=== PATIENT | male | born 1990 | race Caucasian/White ===

== ENCOUNTER 2019-12-06 23:33 | Inpatient (IN) | payer OTHER, SELFPAY ==
--- NOTE | ~2019-12-06 | US_ITS ---
EXAMINATION: US venous doppler [facility] DATE: 12/07/2019 09:38 INDICATION: Bilateral lower limb swelling TECHNIQUE: Grayscale ultrasound images without and with compression and Doppler ultrasound images of the bilateral lower extremity veins were obtained. COMPARISON: None. FINDINGS: The visualized portions of right common femoral vein, profunda (deep) femoral vein, femoral vein, pop liteal vein, posterior tibial veins, peroneal veins, gastrocnemius vein and the lesser saphenous vein and greater saphenous vein outflow are patent. The visualized portions of left common femoral vein, profunda femoral vein, femoral vein, popliteal v ein, posterior tibial veins, peroneal veins, gastrocnemius vein, lesser saphenous vein and greater sa phenous vein outflow are patent. IMPRESSION: 1. No deep venous thrombosis in either lower limb. Reviewed, dictated and finalized at location A.
--- NOTE | ~2019-12-06 | CT_ITS ---
EXAMINATION: CT abdomen pelvis w con DATE: 12/07/2019 02:39 INDICATION: Vomiting. Elevated liver function tests. TECHNIQUE: Computed tomography (CT) of the abdomen and pelvis was performed with 100 cc Omnipaque 350 intravenous contrast. The dose-length product was 1130.93 mGy-cm. Automated exposure control and ite rative reconstruction technique were employed. COMPARISON: None. FINDINGS: Moderate right and small left pleural effusions. No significant pericardial effusion. There is ascites. There is generalized subcutaneous edema, consistent with anasarca. Fatty infiltration of the liver. Cardiomegaly. No significant vascular abnormality. The spleen, pancr eas, adrenal glands and kidneys are unremarkable. No lymphadenopathy. Gallbladder is present. Nonobst ructive bowel gas pattern. Normal appendix. No acute osseous abnormality. IMPRESSION: 1. Anasarca characterized by pleural effusions, ascites and generalized subcutaneous edema. 2: Hepatic steatosis. Reviewed, dictated and finalized at location A. IMPRESSION: 1. Anasarca characterized by pleural effusions, ascites and generalized subcuta neous edema. 2: Hepatic steatosis.
--- NOTE | ~2019-12-06 | XR_ITS ---
EXAMINATION: XR chest 1V portable DATE: 12/07/2019 02:46 INDICATION: 2 weeks of cough, nausea, vomiting and diarrhea. TECHNIQUE: frontal view of the chest was obtained. COMPARISON: CT abdomen and pelvis dated 12/07/19 FINDINGS: Borderline heart size with pulmonary vascular congestion but without elier pulmonary edema. No airspa ce opacities pneumothorax or evident pleural effusion. A small right pleural effusion is present on t he immediately prior CT of the abdomen and pelvis however is indiscernible on the provided AP project ion. IMPRESSION: 1. Borderline heart size with pulmonary vascular congestion but without elier pulmonary edema. 2. Small right pleural effusion evident on prior CT is indiscernible on the current AP radiograph. Reviewed, dictated and finalized at location A. IMPRESSION: 1. Borderline heart size with pulmonary vascular congestion but without elier p ulmonary edema. 2. Small right pleural effusion evident on prior CT is indiscernible on the cur rent AP radiograph.
[2019-12-06 23:37] VITALS: BP 108/84; PULSE 94; RESP 16; TEMP 36; O2SAT 100
[2019-12-06 23:55] LABS: Basophils Percent Auto 0.5 % (0.2-1.2); Eosinophils Absolute Auto 0.1 K/mm3 (0-0.3); Eosinophils Percent Auto 0.7 % (0-4.4); Hemoglobin 14.7 g/dL (14.0-18.0); Immature Granulocyte Absolute 0.03 K/mm3 (0.00-0.031); Immature Granulocyte Percent A 0.4 % (0-0.5); Lymphocytes Absolute Auto 1.84 K/mm3 (0.9-3.2); Lymphocytes Percent Auto 22.7 % (18.3-44.2); Mean Corpuscular HGB Conc 33.4 g/dl (32-36); Mean Corpuscular Hemoglobin 30.6 pg (26-34); Mean Corpuscular Volume 91.7 fl (80-100); Mean Platelet Volume 10.6 fl (7.4-10.4); Monocytes Absolute Auto 0.6 K/mm3 (0.1-0.6); Neutrophils Absolute Auto 5.6 K/mm3 (1.3-6.7); Neutrophils Percent Auto 68.7 % (45.5-73.1); Platelet Count Result 254 k/mm3 (150-375); Red Cell Distribution Width 12.8 % (11.5-14.5); White Blood Count 8.1 K/mm3 (4.5-10.0)
[2019-12-07] VITALS (12 sets, daily range): BP systolic 112–118; BP diastolic 69–90; PULSE 82–100; RESP 16–20; TEMP 36.3–36.8; O2SAT 98–100; BMI 29.2
[2019-12-07 00:04] LABS: Alanine Aminotransferase 55 U/L (4-50); Albumin Level 4.3 g/dL (3.5-5.1); Alkaline Phosphatase 59 U/L (38-126); Anion Gap 12 mmol/L (8-16); Aspartate Amino Transferase 48 U/L (17-59); Bilirubin,Total 1.8 mg/dL (0.2-1.3); Blood Urea Nitrogen 11 mg/dL (9-20); Calcium 9.2 mg/dL (8.4-10.2); Carbon Dioxide 29 mmol/L (22-30); Chloride 92 mmol/L (98-107); Estimated Glomerular Filt Rate > 60; Glucose 263 mg/dL (75-110); Lipase 107 U/L (23-300); Potassium 3.8 mmol/L (3.4-5.0); Sodium 133 mmol/L (137-145)
[2019-12-07 00:14] LABS: Add Urine Microscopic? YES; Appearance Urine Clear (Clear); Bacteria Urine Trace /hpf; Bilirubin Urine Negative (Negative); Blood Urine Negative (Negative); Color Urine Yellow (Yellow); Glucose Urine UA 1+ mg/dL (Negative); Hyaline Casts Urine 50+ /lpf; Ketones Urine Negative (Negative); Leukocyte Esterase Ur Negative LEU/UL (Negative); Mucus Urine Moderate /lpf; Nitrate Urine Negative (Negative); Protein Urine 3+ mg/dL (Negative); RBC Urine 0-2 /hpf (0-2); Specific Grav Ur 1.014 (1.001-1.035); Squamous Epithelial Cell Urine Occasional /hpf (Few)
--- NOTE | 2019-12-07 02:11 | ED.NAVMDI ---
HPI - Nausea/Vomiting/Diarrhea General Chief complaint: Nausea/Vomiting/Diarrhea Stated complaint: puking a lot Time Seen by Provider: 12/07/19 01:47 Source: patient Mode of arrival: ambulatory Limitations: no limitations History of Present Illness HPI Narrative: This patient is a 29 year old male with history of DM and hypertension who presents for evaluation nausea, vomiting and diarrhea. He states starting 1 month ago he started having bilateral leg edema, nausea, vomiting. He reports this started when he started taking metformin. His PCP told his to stop taking it 2 weeks ago. He reports his leg swelling have continued to worsen and he noticed swelling to his abdomen as well. He denies abdominal pain or fever. He reports mild cough but thinks it is due to vaping. He denies chest pain. He denies history of heart disease or liver disease. He does admit to history of binging alcohol but he has not drank alcohol in a long time. Related Data Allergies Allergy/AdvReac Type Severity Reaction Status Date / Time No Known Allergies Allergy Verified 12/07/19 02:43 Review of Systems Review of Systems: All systems reviewed & are unremarkable except as noted in HPI and below Constitutional: Constitutional: Denies chills, Reports fatigue and Denies fever(s) Cardiovascular: Cardiovascular: Denies chest pain Respiratory: Respiratory: Reports cough, Denies dyspnea and Denies wheezing Gastrointestinal: Gastrointestinal: Denies abdominal pain, Reports diarrhea, Reports nausea and Reports vomiting Integumentary/Breasts: Skin/Breast: Reports rash Endocrine: Endocrine: Reports fatigue PMFSH Past Medical History Medical History (Updated 12/07/19 @ 05:29 by Corrina Warren MD) Diabetes mellitus Hypertension Surgical History Surgical History (Updated 12/07/19 @ 02:12 by Corrina Warren MD) No significant past surgical history Social History Social History (Updated 12/07/19 @ 05:30 by Corrina Warren MD) Alcohol intake: former Alcohol use details: he use to drink 12-16 beers a day on the weekend Exam Const: General: no acute distress, alert and ill appearing Orientation/consciousness: patient oriented x3 HENMT: Face and sinus: face symmetric Throat: uvula midline Eyes: Pupils: Equal, round and reactive pupils present EOM: EOMs intact bilaterally Chest: Chest palpation & inspection: normal inspection of the chest Resp: Effort & Inspection: normal respiratory effort Auscultation: clear to auscultation bilaterally and diminished lung sounds Cardio: Rate: regular rate Rhythm: regular rhythm GI: GI Palp: Yes Soft to palpation, No Tenderness to palpation present (GI), No Guarding due to palpation present (GI) and No Rigid due to palpation Neuro: General: patient oriented x3 and moves all extremities Extrem: General: edema bilateral (lower extremity) Course Consultations Consultation #1: I discussed case with Dr. Randhawa who accepts patient to hospitalist service on medical floor for CHF vs fluid overload Date: 12/07/19 Time: 04:36 Vital Signs Vital signs: Vital Signs Temperature 96.8 F L 12/06/19 23:37 Pulse Rate 94 12/06/19 23:37 Respiratory Rate 16 12/06/19 23:37 Blood Pressure 108/84 12/06/19 23:37 Pulse Oximetry 100 12/06/19 23:37 Temperature 96.8 F L 12/06/19 23:37 Pulse Rate 89 12/07/19 03:47 Respiratory Rate 16 12/07/19 03:47 Blood Pressure 112/69 12/07/19 03:47 Pulse Oximetry 100 12/07/19 03:47 MDM - Nausea/Vomiting/Diarrhea Differential Diagnosis Differential diagnosis: Likely gastroenteritis and other (hepatitis, chf, pancreatitis, ) Lab Data Attestation: I reviewed the patient's lab results. Result diagrams: 12/06/19 23:42 12/06/19 23:42 Labs: Lab Results 12/06/19 12/06/19 12/06/19 Range/Units 23:42 23:42 23:42 WBC 8.1 (4.5-10.0) K/mm3 RBC 4.80 (4.6-6.20) M/mm3 Hgb 14.7 (14.0-1
[2019-12-07] MEDS: ONDANSETRON INJ 4 MG/2 ML VIAL IV PUSH ×3 (02:48→16:23)
[2019-12-07 02:54] LABS: NT Pro B Type Natriuretic Pept 6860 PG/ML (5-100)
[2019-12-07 03:15] LABS: Hepatitis B Surface Antigen Negative (Negative)
[2019-12-07 03:20] LABS: HAV RESULT Negative (Negative); Hepatitis B Core IgM Result Negative (Negative)
[2019-12-07 03:32] LABS: Hepatitis C Virus Antibody Negative (Negative)
[2019-12-07] MEDS: FUROSEMIDE INJ 40 MG/4 ML VIAL IV PUSH ×3 (04:29→16:17)
--- NOTE | 2019-12-07 05:27 | ECG_ITS ---
Measurements Intervals [place] Rate: 97 P: 81 MD: 175 QRS: -15 QRSD: 79 T: 149 QT: 370 QTc: 472 Interpretive Statements SINUS RHYTHM POSSIBLE LEFT ATRIAL ENLARGEMENT DELAYED PRECORDIAL R/S TRANSITION BORDERLINE T WAVE ABNORMALITY- DIFFUSE LEADS BORDERLINE ECG Electronically Signed On 12-07-2019 7:44:36 CDT by Jose Hendrix D.O.
--- NOTE | 2019-12-07 06:00 | ECHO_ITS ---
Patient Info Name: Tano Cifuentes Age: 29 years : 1990 Gender: Male Ht: 75 in Wt: 334 lbs BSA: 2.89 m2 HR: 92 bpm BP: 118 / 90 mmHg Heart Rhythm: Sinus Rhythm Technical Quality: Good Exam Date: 12/07/2019 1:15 PM Exam Location: [facility] Pulmonary Exam Room: 357 Patient Status: Inpatient Admit Date: 12/07/2019 Staff Ordering Physician: Corrina Warren MD Surgery Specialist: Birdie Casiano RDCS Attending Provider: Madisyn Ybarra PA-C Referring Physician: Kelvin HENRIQUEZ; Exam Type: CA echo doppler color flow Study Info Indications - chf Complete two-dimensional, color flow and Doppler transthoracic echocardiogram is performed. Summary 1. Complete two-dimensional, color flow and Doppler transthoracic echocardiogram is performed. 2. Moderate left ventricular enlargement with normal wall thickness and severe global hypokinesis. The calculated ejection fraction is 10% and visually is 10-15%. No segmental wall motion abnormalities. Global longitudinal strain is severely diminished at -5%. There is 3-4 grade 3-4 diastolic dysfunction present. 3. Left atrial chamber dimension is moderately enlarged. 4. Right atrial chamber dimension is mildly enlarged. 5. Right ventricular chamber dimension is moderately enlarged, with severe right ventricular hypokinesis. 6. There is mild to moderate mitral valve regurgitation. 7. There is moderate tricuspid valve regurgitation. 8. Mild pulmonary hypertension, estimated pulmonary arterial systolic pressure is 42 mmHg. 9. Dilated inferior vena cava with <50% collapse upon inspiration consistent with significantly elevated right atrial pressure, 10 mmHg. 10. There is trivial pericardial effusion. 11. Normal sinus rhythm. Left Ventricle Left ventricular chamber dimension is normal. Left ventricular systolic function is severely reduced, estimated at <15%. There is no increased left ventricular wall thickness. Left ventricular septal wall motion is normal. The left ventricular diastolic function is grade IV diastolic dysfunction. Global longitudinal strain is severely elevated at 5 %. Right Ventricle Right ventricular chamber dimension is moderately enlarged, with severe right ventricular hypokinesis. Right ventricular systolic function is reduced. Left Atria Left atrial chamber dimension is moderately enlarged. Right Atria Right atrial chamber dimension is mildly enlarged. Aortic Valve The aortic valve is trileaflet. There is no aortic valve sclerosis. There is no aortic valve stenosis. There is no aortic valve regurgitation. Pulmonic Valve The pulmonic valve is normal. There is no pulmonic valve stenosis. There is trace pulmonic regurgitation. Mitral Valve The mitral valve has normal leaflets. There is no mitral valve stenosis. There is mild to moderate mitral valve regurgitation. Tricuspid Valve The tricuspid valve leaflets are normal. There is no significant tricuspid valve stenosis. There is moderate tricuspid valve regurgitation. Mild pulmonary hypertension, estimated pulmonary arterial systolic pressure is 42 mmHg. Pericardium/Pleural The pericardium appears normal. There is trivial pericardial effusion. Inferior Vena Cava Dilated inferior vena cava with <50% collapse upon inspiration consistent with significantly elevated right atrial pressure, 10 mmHg. Aorta The aortic root size at the sinus of Valsalva is normal. The prox ascending aorta size is normal.
--- NOTE | 2019-12-07 06:04 | ADMGEN ---
This patient, Taon Cifuentes, was admitted to 2 Medical Room 257-. Patient/family oriented to hospital policies and general routines including ID bracelet, bed and alarms, visiting hours, pain management, procedures, bathroom and other care routines, personal items, smoking policy, room service/diet, and visiting hours. Valuables list has been completed. Information on how to activate the Rapid Response Team has been discussed. Patient/Family are encouraged to report perceived risks to care and to ask questions if they do not understand what they are told or what they should do.
--- NOTE | 2019-12-07 07:56 | PC.NURSE ---
I notified ABDIRIZAK Dougherty of the patient's electrocardiogram.
[2019-12-07 08:45] LABS: Hemoglobin A1C 8.6 % (<5.7)
[2019-12-07 08:49] LABS: Glucose Point of Care 182 (65-105)
[2019-12-07] MEDS: lisinopriL 5 MG TABLET PO (09:55)
[2019-12-07] MEDS: METOPROLOL TARTRATE 25 MG TABLET PO ×2 (09:55→20:32)
[2019-12-07] MEDS: POTASSIUM CHLORIDE 20 MEQ TABLET.ER PO (09:55)
--- NOTE | 2019-12-07 10:51 | PM.IMHP ---
H&P: HPI History of Present Illness Date/Time: 12/07/19 0945 Chief complaint: leg swelling; nausea/vomiting Narrative: Date of Service is 12/07/19 This supervising physician for this history and physical is Dr. Judith Bruno. Mr. Cifuentes is a 29-year-old male with history of diabetes and hypertension who presented to the ED for evaluation of worsening lower extremity swelling, nausea, vomiting, and diarrhea. He describes that he noticed his ankles began swelling around 1 and a half months ago. Swelling has been worsening over the last few weeks. He denies pain, numbness, or tingling in his legs. He denies dyspnea on exertion and orthopnea. No chest pain or calf tenderness. Around 1 month ago he started to have nausea, vomiting, and 2-3 episodes of nonbloody diarrhea daily. These GI symptoms have not gotten any better or any worse over the last few weeks. He notes that he was diagnosed with diabetes in August 2019 and was started on metformin at that time. He tells me he stops taking metformin around 1 month ago when he began to have these GI symptoms. He recently saw his primary care provider 2 days ago on for evaluation of his swelling and GI symptoms. Two days ago at this appointment, he tells me he was started on lisinopril, metformin, and 40 mg of Lasix daily. He also noted this appointment was when he was educated on how to monitor his blood sugars at home, and that over the last 2 days his blood sugars have been running in the low 200s. He denies any known history of heart disease or kidney disease. He is having some nausea this morning. Workup thus far included a CT abdomen/pelvis which is not formally read yet but preliminarily shows a right pleural effusion, small pericardial effusion, mild ascites, anasarca, probable hepatic steatosis with a question of reflux of contrast into the hepatic veins. Pertinent lab work includes a proBNP of 6860, Hgb A1c of 8.6, total bilirubin of 1.8, a mildly elevated ALT, mild hyponatremia. Urinalysis demonstrates proteinuria, 1+ glucose, hyaline and granular casts with moderate mucus. The patient is admitted to the hospitalist service for evaluation of lower extremity swelling and management of other comorbidities. 2D echocardiogram has been ordered and will consider further consultations after these results are obtained. Review of Systems Review of Systems: Narrative: Lower extremity swelling began 1-1/2 months ago and worsening. No pain in his legs. No chest pain or shortness of breath. No cough, fevers, chills, or recent sick contacts. Nausea, vomiting, diarrhea began around 1 month ago at which time his metformin was discontinued by PCP. He denies hematochezia, melena. Denies abdominal pain. No headaches, dizziness, or lightheadedness.Twelve systems were reviewed with pertinent positives and negatives as per HPI. Except as documented, all other systems were reviewed and are negative. [facility] Past Medical History Medical History (Updated 12/07/19 @ 11:22 by Madisyn Ybarra PA-C) Diabetes mellitus Reports he was diagnosed with diabetes in August 2019 and was started on metformin at that time. He tells me they were running more tests this week to determine what type of diabetes he had. He has not gotten these results back yet from PCP. Hypertension Started taking lisinopril and metoprolol 12/05/19 by PCP. Surgical History Surgical History No significant past surgical history Family History Family History (Updated 12/07/19 @ 11:11 by Madisyn Ybarra PA-C) Mother Breast cancer CHF (congestive heart failure) Other Diabetes mellitus Hypertension Social History Social History (Updated 12/07/19 @ 11:14 by Madisyn Ybarra PA-C) Social History: Mr. 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 He reports drinking alcohol occasionally, may finish a 12 pack of beer in
[2019-12-07 11:59] LABS: Glucose Point of Care 183 (65-105)
[2019-12-07 16:31] LABS: Glucose Point of Care 139 (65-105)
[2019-12-07 17:46] LABS: Amphetamine Screen Urine Negative (Negative); Barbiturate Screen Urine Negative (Negative); Benzodiazepines Screen Urine Negative (Negative); Cannabinoid Screen Urine Negative (Negative); Cocaine Screen Urine Negative (Negative); Methadone Screen Urine Negative (Negative); Opiate Screen Urine Negative (Negative); Phencyclidine Screen Urine Negative (Negative)
--- NOTE | 2019-12-07 19:21 | WPDCN ---
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 Seems to have unusually good exertional tolerance considering his very poor left ventricular function. Appears idiopathic, cannot rule out a familial cardiomyopathy. Has already been started on metoprolol and lisinopril for his hypertension. Titrate as BP allows. Add spironolactone. Continue IV Lasix. Cardiac catheterization on Monday although CAD is unlikely. Will discuss LifeVest later. (2) Cardiomyopathy: Code(s): I42.9 - Cardiomyopathy, unspecified Status: Acute Assessment and Plan: Idiopathic cardiomyopathy Ejection fraction 10-15% (3) Hypertension: Code(s): I10 - Essential (primary) hypertension Status: Chronic Assessment and Plan: Now controlled. (4) Diabetes mellitus: Code(s): E11.9 - Type 2 diabetes mellitus without complications Status: Chronic Assessment and Plan: Treatment per hospitalist. HPI Data of Consult Date/Time: 12/07/19 19:21 Requesting Physician: MIGUEL ÁNGEL Dougherty Primary Care Provider: DIRECTOR RECREATION PHYSICIAN Consult Narrative Narrative: Date of service: 12/07/2019 Tano Cifuentes is a 29 year old male Whom I was asked to see at the request of the hospitalist for my advice and opinion regarding his CHF and cardiomyopathy, in consultation. The patient came to the emergency room because of nausea, vomiting, diarrhea and edema. He has had progressive lower extremity edema and abdominal distention for the past 1 and half months, and has gained about 10 lb. In the emergency room his chest x-ray showed CHF and he had a CT of his abdomen which showed anasarca, pleural effusions, and cardiomegaly. Echo showed EF 10-15% with 4 chamber cardiac enlargement. He was admitted for evaluation and treatment of CHF. He has been started on IV furosemide and says he feels 10 times better. nterestingly, the patient denies any shortness of breath or GASPAR. 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 He can climb flight of stairs with no difficulty. He has had no chest pain or palpitations. The patient was diagnosed with hypertension and diabetes in August 2019 ; his blood pressure was never severely elevated. No recent viral infections or fevers. He used to binge drink 12-16 beers a day on the weekends when in high school, but cut back in 2011 and now drinks infrequently and does not binge drink. No history of drug use but does vape, does not smoke cigarettes. Some family history of heart disease. Review of Systems Constitutional: Constitutional: Denies weakness Eyes: Eyes: Reports no additional eye complaints ENT: Denies nasal congestion Cardiovascular: Cardiovascular: Denies chest pain, Denies diaphoresis, Reports pedal edema, Reports leg edema, Denies lightheadedness and Denies palpitations Respiratory: Respiratory: Denies cough, Denies dyspnea and Denies dyspnea on exertion Gastrointestinal: Gastrointestinal: Reports bloating, Reports diarrhea, Reports nausea and Reports vomiting Genitourinary: Genitourinary: Denies dysuria Musculoskeletal: Musculoskeletal: Reports no additional musculoskeletal complaints Integumentary/Breasts: Skin/Breast: Denies rash Neurologic: Denies confusion Psychiatric: Psychiatric: Denies behavioral changes [facility] Past Medical History Medical History Cardiomyopathy Diabetes mellitus Repo
[2019-12-07] MEDS: rOPINIRole HCL 0.25 MG TABLET PO (20:32)
[2019-12-07 21:07] LABS: Glucose Point of Care 184 (65-105)
[2019-12-08] VITALS (11 sets, daily range): BP systolic 109–119; BP diastolic 76–86; PULSE 83–98; RESP 12–16; TEMP 36.8–37.6; O2SAT 98–100
[2019-12-08 06:07] LABS: INR 1.4
[2019-12-08 06:08] LABS: Partial Thromboplastin Time 30.1 SECONDS (22.3-36.8)
[2019-12-08 06:36] LABS: Alanine Aminotransferase 49 U/L (4-50); Albumin Level 3.3 g/dL (3.5-5.1); Alkaline Phosphatase 51 U/L (38-126); Anion Gap 9 mmol/L (8-16); Aspartate Amino Transferase 36 U/L (17-59); Bilirubin,Total 1.3 mg/dL (0.2-1.3); Blood Urea Nitrogen 13 mg/dL (9-20); CRP < 0.5 mg/dL (<1.0); Calcium 8.5 mg/dL (8.4-10.2); Carbon Dioxide 32 mmol/L (22-30); Chloride 93 mmol/L (98-107); Estimated CRCL calculation 99 ml/min; Estimated Glomerular Filt Rate > 60; Glucose 131 mg/dL (75-110); Magnesium 1.8 mg/dL (1.6-2.3); Potassium 3.6 mmol/L (3.4-5.0); Sodium 134 mmol/L (137-145)
[2019-12-08 07:07] LABS: Erythrocyte Sedimentation Rate 4 mm/hr (0-20)
[2019-12-08] MEDS: POTASSIUM CHLORIDE 20 MEQ TABLET.ER PO (08:06)
[2019-12-08] MEDS: FUROSEMIDE INJ 40 MG/4 ML VIAL IV PUSH ×2 (08:06→17:19)
[2019-12-08] MEDS: lisinopriL 10 MG TABLET PO (08:06)
[2019-12-08] MEDS: SPIRONOLACTONE 25 MG TABLET PO (08:06)
[2019-12-08] MEDS: METOPROLOL TARTRATE 25 MG TABLET PO ×2 (08:07→20:30)
[2019-12-08] MEDS: MAGNESIUM OXIDE 200 MG TABLET PO ×2 (08:49→20:30)
[2019-12-08 09:24] LABS: Glucose Point of Care 116 (65-105)
--- NOTE | 2019-12-08 09:54 | PC.NURSE ---
I left a message for the coding educator to see the patient when they are here on Monday.
--- NOTE | 2019-12-08 10:22 | PM.IMPN ---
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 Echocardiogram revealed a severe cardiomyopathy with systolic and diastolic dysfunction, EF 10-15%. Appreciate cardiology recommendations in this setting. Discussed with Dr Blackmon plan for cardiac catheterization tomorrow. Idiopathic vs. ?familial - His mother did pass away in her 50s of heart failure but she also had lung CA, per patient. Continue metoprolol, diuresis, and lisinopril changed to Entresto. LifeVest discussed and patient is interested - may get during this admission or in the office this week. (2) Cardiomyopathy: Qualifiers: Cardiomyopathy type: unspecified Qualified Code(s): I42.9 - Cardiomyopathy, unspecified Code(s): I42.9 - Cardiomyopathy, unspecified Status: Acute Assessment and Plan: See above. Appreciate Dr Blackmon's input and education to patient and his . (3) Anasarca: Code(s): R60.1 - Generalized edema Status: Acute Assessment and Plan: [place] to be secondary to above, swelling is improving with diuresis. (4) Diabetes mellitus: Qualifiers: Diabetes mellitus complication status: without complication Diabetes mellitus long term care phlebotomist insulin use: without long term care phlebotomist use Diabetes mellitus type: other specified (including MICHELE) Qualified Code(s): E13.9 - Other specified diabetes mellitus without complications Code(s): E11.9 - Type 2 diabetes mellitus without complications Status: Chronic Assessment and Plan: Describes he was diagnosed with diabetes around 3 or 4 months ago by PCP at which time he was started on metformin. Just this week he was educated on monitoring his blood sugars at home and tells me they were running in the low 200s in the last 2 days. Hgb A1c is 8.6. Continue to monitor with Accu-Cheks and cover with sliding scale insulin. We will plan for him to meet with a visual educator. Will hold off on starting metformin given plans for cardiac cath tomorrow. (5) Hypertension: Qualifiers: Hypertension type: essential hypertension Qualified Code(s): I10 - Essential (primary) hypertension Code(s): I10 - Essential (primary) hypertension Status: Chronic Assessment and Plan: He was recently started on lisinopril a few days ago by PCP. BP stable last 118/78. Lisinopril changed to Entresto. Monitor BP, adjust treatment as needed. (6) Nausea and vomiting: Qualifiers: Vomiting Intractability: unspecified Vomiting type: unspecified Qualified Code(s): R11.2 - Nausea with vomiting, unspecified Code(s): R11.2 - Nausea with vomiting, unspecified Status: Resolved Assessment and Plan: This has been going on over the last 1 month. May be related to volume overload as his symptoms have now resolved since being here. If he has diarrhea, can be tested with stool culture otherwise will treat supportively. Subjective Date/time seen: 12/08/19 0930 Interval history: Mr. Cifuentes is a pleasant young man unfortunately admitted with severe cardiomyopathy with acute CHF. His swelling is improving. He has no chest pain. No shortness of breath with walking, at rest, or lying flat. He tolerated some breakfast without nausea or vomiting. Review of Systems Review of Systems: Narrative: Twelve systems were reviewed with pertinent positives and negatives as per HPI. Ex
[2019-12-08 12:32] LABS: Glucose Point of Care 118 (65-105)
--- NOTE | 2019-12-08 13:54 | PM.PNCARD ---
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 Seems to have unusually good exertional tolerance considering his very poor left ventricular function. Appears idiopathic, cannot rule out a familial cardiomyopathy. Has already been started on metoprolol and lisinopril for his hypertension. Titrate as BP allows. Added spironolactone. Will change lisinopril to Entresto; hopefully his insurance will cover this. Change Lasix to p.o.. Cardiac catheterization on Monday although CAD is unlikely. Reviewed possible risks and complications with patient including breathing problems, bleeding problems, blood vessel problems, unanticipated surgery, allergic reactions, kidney problems, CVA, PA, and among others. Discussed possibility of stenting Although this I think is highly unlikely. Patient understands risks and desires to proceed. Discussed risk of arrhythmia is and cardiac arrest /sudden cardiac . Discussed the use of a LifeVest. After discussion the patient decided to proceed with this and we will see if we can get fitted tomorrow or in our office this week. Discussed cardiomyopathy, CHF in prognosis extensively with the patient and his . Reviewed low-salt diet, follow-up, etc.. (2) Cardiomyopathy: Code(s): I42.9 - Cardiomyopathy, unspecified Status: Acute Assessment and Plan: Idiopathic cardiomyopathy Ejection fraction 10-15% (3) Hypertension: Code(s): I10 - Essential (primary) hypertension Status: Chronic Assessment and Plan: Now controlled. (4) Diabetes mellitus: Code(s): E11.9 - Type 2 diabetes mellitus without complications Status: Chronic Assessment and Plan: Treatment per hospitalist. Subjective Date/time seen: 12/08/19 13:54 Interval history: Follow-up for cardiomyopathy and new onset CHF, EF 10-15%. Date of service: 12/08/2019 Patient is diuresing well. Blood pressure stable, running about 115-120 mmHg systolic. Drug screen was negative. Up and about in his room with no shortness of breath, chest pain or dizziness. Edema has improved. Review of Systems Constitutional: Constitutional: Reports no additional constitutional complaints ENT: Denies nasal congestion Cardiovascular: Cardiovascular: Denies chest pain, Reports pedal edema, Reports leg edema and Denies lightheadedness Respiratory: Respiratory: Denies no additional respiratory complaints and Denies dyspnea Gastrointestinal: Gastrointestinal: Reports no additional gastrointestinal complaints, Denies diarrhea and Denies nausea Musculoskeletal: Musculoskeletal: Reports no additional musculoskeletal complaints Integumentary/Breasts: Skin/Breast: Denies rash Neurologic: Reports system reviewed and no additional complaints, except as documented Psychiatric: Psychiatric: Reports no additional psychiatric complaints Exam Narrative: Exam Narrative: Pleasant young man, at the bedside, no distress Const: General: comfortable and no acute distress HENMT: Mouth: Yes moist mucous membranes Eyes: EOM: EOMs intact bilaterally Neck: Neck: supple Resp: Auscultation: clear to auscultation bilaterally Cardio: Heart sounds: no murmurs GI: Inspection: non-distended Other: soft and nontender Neuro: Speech: normal speech Motor exam (neuro): Normal motor muscle tone present throughout Extrem: General: edema and ped
[2019-12-08 16:46] LABS: Glucose Point of Care 122 (65-105)
[2019-12-08] MEDS: rOPINIRole HCL 0.25 MG TABLET PO (20:30)
[2019-12-08 21:23] LABS: Glucose Point of Care 180 (65-105)
[2019-12-09] VITALS (31 sets, daily range): BP systolic 102–122; BP diastolic 72–98; PULSE 81–107; RESP 12–18; TEMP 36.2–36.8; O2SAT 95–100; BMI 27.2
[2019-12-09 06:10] LABS: Basophils Percent Auto 0.7 % (0.2-1.2); Eosinophils Absolute Auto 0.1 K/mm3 (0-0.3); Eosinophils Percent Auto 1.7 % (0-4.4); Hematocrit 41.1 % (42.0-52.0); Hemoglobin 13.8 g/dL (14.0-18.0); Immature Granulocyte Absolute 0.01 K/mm3 (0.00-0.031); Immature Granulocyte Percent A 0.2 % (0-0.5); Lymphocytes Absolute Auto 1.18 K/mm3 (0.9-3.2); Lymphocytes Percent Auto 29.1 % (18.3-44.2); Mean Corpuscular HGB Conc 33.6 g/dl (32-36); Mean Corpuscular Hemoglobin 30.7 pg (26-34); Mean Corpuscular Volume 91.3 fl (80-100); Mean Platelet Volume 10.6 fl (7.4-10.4); Monocytes Absolute Auto 0.4 K/mm3 (0.1-0.6); Monocytes Percent Auto 10.9 % (2.6-8.5); Neutrophils Absolute Auto 2.3 K/mm3 (1.3-6.7); Neutrophils Percent Auto 57.4 % (45.5-73.1); Platelet Count Result 181 k/mm3 (150-375); Red Cell Distribution Width 12.9 % (11.5-14.5); White Blood Count 4.1 K/mm3 (4.5-10.0)
[2019-12-09 06:19] LABS: INR 1.2; Partial Thromboplastin Time 29.2 SECONDS (22.3-36.8); Prothrombin Time 15.2 Seconds (11.1-14.7)
[2019-12-09 06:20] LABS: Anion Gap 6 mmol/L (8-16); Blood Urea Nitrogen 16 mg/dL (9-20); Calcium 8.6 mg/dL (8.4-10.2); Carbon Dioxide 35 mmol/L (22-30); Chloride 93 mmol/L (98-107); Estimated CRCL calculation 99 ml/min; Estimated Glomerular Filt Rate > 60; Glucose 170 mg/dL (75-110); Potassium 3.6 mmol/L (3.4-5.0); Sodium 134 mmol/L (137-145)
[2019-12-09 06:23] LABS: Potassium 3.7 mmol/L (3.4-5.0)
[2019-12-09] MEDS: MAGNESIUM OXIDE 200 MG TABLET PO ×2 (08:19→21:14)
[2019-12-09] MEDS: POTASSIUM CHLORIDE 20 MEQ TABLET.ER PO (08:20)
[2019-12-09] MEDS: FUROSEMIDE 40 MG TABLET PO (08:20)
[2019-12-09] MEDS: METOPROLOL TARTRATE 25 MG TABLET PO ×2 (08:20→21:15)
[2019-12-09] MEDS: SACUBITRIL/VALSARTAN 12-13 MG TABLET 1 TAB PO ×2 (08:20→21:14)
[2019-12-09] MEDS: SPIRONOLACTONE 25 MG TABLET PO (08:20)
[2019-12-09] MEDS: SODIUM CHLORIDE 0.9% IV 500 ML 100 ML IV CONT (08:25)
[2019-12-09 08:50] LABS: Glucose Point of Care 139 (65-105)
--- NOTE | 2019-12-09 09:34 | WPDMODSED ---
Moderate Sedation Note-Pt Data Patient Data Diagnosis: congestive heart failure with newly diagnosed cardiomyopathy Present Complaint: lower extremity edema Procedure to be performed/Plan: left heart catheterization Allergies Allergy/AdvReac Type Severity Reaction Status Date / Time No Known Allergies Allergy Verified 12/07/19 02:43 Home Medications Medication Instructions Recorded Confirmed Type furosemide 40 mg PO DAILY 12/07/19 12/07/19 History lisinopril 5 mg PO DAILY 12/07/19 12/07/19 History metoprolol tartrate 25 mg PO BID 12/07/19 12/07/19 History potassium chloride 20 meq PO DAILY 12/07/19 12/07/19 History ropinirole 0.25 mg PO HS 12/07/19 12/07/19 History sulfamethoxazole-trimethoprim 1 tablet PO BID 12/07/19 12/07/19 History Current Medications: Active Medications Dextrose (Dextrose 50% Syringe) 12.5 gm IV PUSH PRN PRN; Protocol PRN Reason: Hypoglycemia Furosemide (Lasix Tablet) 40 mg PO DAILY [facility] Last Admin: 12/09/19 08:20 Dose: 40 mg Documented by: Glucagon (Glucagon For Inj) 1 mg IM PRN PRN; Protocol PRN Reason: Hypoglycemia Glucose (Glutose 15) 15 gm PO PRN PRN; Protocol PRN Reason: Hypoglycemia Dextrose (Dextrose 5% 1,000 Ml) 1,000 mls @ 100 mls/hr IVPB PRN PRN; Protocol PRN Reason: Hypoglycemia Sodium Chloride (Normal Saline Iv) 500 mls @ 100 mls/hr IV CONT .Q5H [facility] Last Admin: 12/09/19 08:25 Dose: 100 mls/hr Documented by: Insulin Aspart (Novolog) 3 - 6 units SUB-Q TIDWM [facility]; Protocol Last Admin: 12/09/19 08:30 Dose: Not Given Documented by: Magnesium Oxide (Mag-Ox) 200 mg PO Q12HR [facility] Last Admin: 12/09/19 08:19 Dose: 200 mg Documented by: Metoprolol Tartrate (Lopressor) 25 mg PO Q12HR [facility] Last Admin: 12/09/19 08:20 Dose: 25 mg Documented by: Ondansetron HCl (Zofran Inj) 4 mg IV PUSH Q4H PRN PRN Reason: Nausea Last Admin: 12/07/19 16:23 Dose: 4 mg Documented by: Potassium Chloride (Kcl Tablet) 20 meq PO DAILY [facility] Last Admin: 12/09/19 08:20 Dose: 20 meq Documented by: Ropinirole HCl (Requip) 0.25 mg PO HS [facility] Last Admin: 12/08/19 20:30 Dose: 0.25 mg Documented by: Sacubitril/Valsartan (Entresto 12 Mg-13 Mg Tablet) 1 tab PO Q12HR [facility] Last Admin: 12/09/19 08:20 Dose: 1 tab Documented by: Spironolactone (Aldactone) 25 mg PO QAM [facility] Last Admin: 12/09/19 08:20 Dose: 25 mg Documented by: Sedation/Anesthesia: No previous sedation/anesthesia problems (including family history). [facility] Past Medical History Medical History Cardiomyopathy Diabetes mellitus Reports he was diagnosed with diabetes in August 2019 and was started on metformin at that time. He tells me they were running more tests this week to determine what type of diabetes he had. He has not gotten these results back yet from PCP. Hypertension Started taking lisinopril and metoprolol 12/05/19 by PCP. Tobacco use Surgical History Surgical History No significant past surgical history Family History Family History (Updated 12/07/19 @ 19:58 by Katie Blackmon MD) Mother Breast cancer CHF (congestive heart failure) Developed CHF in her 50s and in her 50s. No known CAD. Lung cancer patient reports patient of lung cancer in her 50s. Sibling Heart disease born with a hole in his heart, heart problems his whole life, has a pacemaker Father , of complications of alcohol Cerebral aneurysm Other Diabetes mellitus Hypertension Social History Social History Social History: Mr. 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 He reports drinking alcohol occasionally, may finish a 12 pack of beer in 4 months. He vapes nicotine, not daily but some days of the week. Denies other substance use. His PCP is Dr Juliet Kendall in [place] who he last saw 12/05/19. He desig
--- NOTE | 2019-12-09 10:18 | WPDCARDPROC ---
Cardiac Cath Procedure Note Date of procedure:: 12/09/19 Performing physician:: Tano Rangel MD Indication:: newly diagnosed cardiomyopathy Brief clinical history:: this is a 29-year-old gentleman who entered the hospital with a 2 month history of progressively increasing edema. His echocardiogram demonstrates a profound four-chamber dilated cardiomyopathy. Procedure Procedure performed:: Coronary angiography left ventricular hemodynamics Sedation/Medication given:: fentanyl 50 mg Versed 2 mg case start time 10:03 a.m. case end time 10:16 a.m. sedation provided by Alvaro Dubose RN , trained observer Access site:: right femoral artery Estimated blood loss:: 15-20 cc Procedure note:: patient was taken to the cardiac catheterization lab in the postabsorptive state. The right femoral triangle was prepared and draped in the usual fashion. Anesthesia was provided with 1% lidocaine infiltrated locally. Using the modified Seldinger technique the right common femoral artery was punctured and a 5 Mongolian vascular sheath was placed. After this left heart catheterization was carried out. I used an angled pigtail catheter to measure left-sided hemodynamics. I did not inject the left ventricle in an effort to minimize contrast exposure. Following this the left coronary was engaged and injected using an standard 5 Mongolian FL4 catheter. The right coronary was engaged and injected using a standard 5 Mongolian JR4 catheter. This any angiograms were then reviewed and the case was terminated. The patient was taken to the holding area for manual sheath removal there were no signs of any procedural complications and he left the recyclable materials distributor with no evidence of a groin hematoma. Findings:: Hemodynamics: Central aortic pressure was 114 over 74 left ventricle 116 over 5 end-diastolic pressure 26. There is no gradient upon pullback across the aortic valve. Left main coronary artery is widely patent the LAD is a moderate caliber artery extending down to around the apex the LAD and its branches are smooth and angiographically unremarkable circumflex is a medium caliber artery giving rise to the marginal branches the circumflex system is angiographically unremarkable right coronary artery is large in caliber and dominant to the posterior circulation the right coronary artery is angiographically unremarkable Conclusion:: 1. right coronary dominant circulation with no angiographic evidence of coronary disease 2. elevated left ventricular end-diastolic pressure 3. newly diagnosed cardiomyopathy was well demonstrated echocardiographically. I therefore elected not to inject the left ventricle and administer additional contrast in the recyclable materials distributor. Tano Rangel MD [facility]
--- NOTE | 2019-12-09 12:48 | PC.NURSE ---
Patient left for screedman/laborer at 0933 and returned at 1245.
[2019-12-09] MEDS: SODIUM CHLORIDE 0.9% IV 1,000 ML 125 ML IV CONT (12:55)
[2019-12-09 13:27] LABS: Glucose Point of Care 121 (65-105)
--- NOTE | 2019-12-09 13:35 | PM.IMPN ---
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 Echocardiogram revealed a severe cardiomyopathy with systolic and diastolic dysfunction, EF 10-15%. Appreciate cardiology recommendations in this setting. Underwent left heart cath by Dr Rangel today which showed no evidence of coronary disease. Idiopathic vs. ?familial - His mother did pass away in her 50s of heart failure but she also had lung CA, per patient. Continue metoprolol, diuresis, and lisinopril changed to Entresto. He can afford the copay for Entresto. LifeVest discussed and patient is interested - may get during this admission or in the office this week. (2) Cardiomyopathy: Qualifiers: Cardiomyopathy type: unspecified Qualified Code(s): I42.9 - Cardiomyopathy, unspecified Code(s): I42.9 - Cardiomyopathy, unspecified Status: Acute Assessment and Plan: See above. Appreciate Dr Blackmon's input and education to patient and his yesterday. (3) Anasarca: Code(s): R60.1 - Generalized edema Status: Acute Assessment and Plan: [place] to be secondary to above, swelling is improving with diuresis. 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 Just this week he was educated on monitoring his blood sugars at home and tells me they were running in the low 200s in the last 2 days. Hgb A1c is 8.6. Continue to monitor with Accu-Cheks and cover with sliding scale insulin. We will plan for him to meet with a staff educator. If not seen inpatient, this can be arranged outpatient. notes PCP just called in glipizide for him; will need close follow up with PCP to optimize tighter glycemic control. (5) Hypertension: Qualifiers: Hypertension type: essential hypertension Qualified Code(s): I10 - Essential (primary) hypertension Code(s): I10 - Essential (primary) hypertension Status: Chronic Assessment and Plan: He was recently started on lisinopril a few days prior to arrival by PCP. BP stable last 110/72. Lisinopril changed to Entresto. Monitor BP, adjust treatment as needed. (6) Nausea and vomiting: Qualifiers: Vomiting type: unspecified Vomiting Intractability: unspecified Qualified Code(s): R11.2 - Nausea with vomiting, unspecified Code(s): R11.2 - Nausea with vomiting, unspecified Status: Resolved Assessment and Plan: This has been going on over the last 1 month. May be related to volume overload as his symptoms have now resolved since being here. If he has diarrhea, can be tested with stool culture otherwise will treat supportively. Subjective Date/time seen: 12/09/19 13:15 Interval history: Mr. Cifuentes is a pleasant young man unfortunately admitted with new diagnoses of severe cardiomyopathy, acute CHF. His leg swelling is much improved. He has no chest pain. No shortness of breath with walking, at rest
[2019-12-09 16:56] LABS: Glucose Point of Care 139 (65-105)
[2019-12-09] MEDS: rOPINIRole HCL 0.25 MG TABLET PO (21:14)
[2019-12-09 23:12] LABS: Glucose Point of Care 139 (65-105)
[2019-12-10] VITALS (9 sets, daily range): BP systolic 111–119; BP diastolic 81–93; PULSE 87–112; RESP 16; TEMP 36.1–36.7; O2SAT 97–100
[2019-12-10 05:50] LABS: Basophils Percent Auto 0.5 % (0.2-1.2); Eosinophils Absolute Auto 0.1 K/mm3 (0-0.3); Eosinophils Percent Auto 1.9 % (0-4.4); Hematocrit 41.4 % (42.0-52.0); Hemoglobin 13.5 g/dL (14.0-18.0); Immature Granulocyte Absolute 0.01 K/mm3 (0.00-0.031); Immature Granulocyte Percent A 0.3 % (0-0.5); Lymphocytes Absolute Auto 1.11 K/mm3 (0.9-3.2); Lymphocytes Percent Auto 30.2 % (18.3-44.2); Mean Corpuscular HGB Conc 32.6 g/dl (32-36); Mean Corpuscular Hemoglobin 29.9 pg (26-34); Mean Corpuscular Volume 91.6 fl (80-100); Mean Platelet Volume 10.1 fl (7.4-10.4); Monocytes Absolute Auto 0.4 K/mm3 (0.1-0.6); Monocytes Percent Auto 10.1 % (2.6-8.5); Neutrophils Absolute Auto 2.1 K/mm3 (1.3-6.7); Platelet Count Result 191 k/mm3 (150-375); Red Blood Count 4.52 M/mm3 (4.6-6.20); Red Cell Distribution Width 12.8 % (11.5-14.5); White Blood Count 3.7 K/mm3 (4.5-10.0)
[2019-12-10 06:11] LABS: Alanine Aminotransferase 31 U/L (4-50); Albumin Level 3.5 g/dL (3.5-5.1); Alkaline Phosphatase 59 U/L (38-126); Anion Gap 6 mmol/L (8-16); Aspartate Amino Transferase 19 U/L (17-59); Bilirubin,Total 0.6 mg/dL (0.2-1.3); Blood Urea Nitrogen 13 mg/dL (9-20); Calcium 8.7 mg/dL (8.4-10.2); Carbon Dioxide 32 mmol/L (22-30); Chloride 98 mmol/L (98-107); Estimated CRCL calculation 107 ml/min; Estimated Glomerular Filt Rate > 60; Glucose 175 mg/dL (75-110); Magnesium 2.1 mg/dL (1.6-2.3); Potassium 4.2 mmol/L (3.4-5.0); Sodium 136 mmol/L (137-145)
[2019-12-10 07:48] LABS: Glucose Point of Care 152 (65-105)
[2019-12-10] MEDS: POTASSIUM CHLORIDE 20 MEQ TABLET.ER PO (08:46)
[2019-12-10] MEDS: MAGNESIUM OXIDE 200 MG TABLET PO (08:46)
[2019-12-10] MEDS: METOPROLOL TARTRATE 25 MG TABLET PO (08:46)
[2019-12-10] MEDS: FUROSEMIDE 40 MG TABLET PO (08:46)
[2019-12-10] MEDS: SACUBITRIL/VALSARTAN 12-13 MG TABLET 1 TAB PO (08:46)
[2019-12-10] MEDS: SPIRONOLACTONE 25 MG TABLET PO (08:46)
--- NOTE | 2019-12-10 11:16 | PM.PNCARD ---
Progress Note: A&P Assessment and Plan (1) Acute combined systolic and diastolic ACC/AHA stage C congestive heart failure: Code(s): I50.41 - Acute combined systolic (congestive) and diastolic (congestive) heart failure Status: Acute Assessment and Plan: cardiac catheterization 12/09/2019: Right coronary dominant circulation with no angiographic evidence of coronary disease. Elevated left ventricular end-diastolic pressure. Continue furosemide 40 mg daily, change Metoprolol tartrate to Metoprolol succinate at 50 mg daily, continue Entresto 24/26 mg every 12 hours and spironolactone to 25 mg daily. Hopefully will be able to up titrate medications in the office. (2) Cardiomyopathy: Qualifiers: Cardiomyopathy type: unspecified Qualified Code(s): I42.9 - Cardiomyopathy, unspecified Code(s): I42.9 - Cardiomyopathy, unspecified Status: Acute Assessment and Plan: Idiopathic cardiomyopathy Ejection fraction 10-15% Life Vest applied (3) Hypertension: Qualifiers: Hypertension type: essential hypertension Qualified Code(s): I10 - Essential (primary) hypertension Code(s): I10 - Essential (primary) hypertension Status: Chronic Assessment and Plan: Now controlled. 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 Additional Plan OK to discharge from cardiac standpoint. See discharge instructions for follow-up. Plan discussed with Dr. Hill 1115 12/10/2019 Subjective Date/time seen: 12/10/19 11:16 Interval history: Follow-up for: cardiomyopathy and new onset CHF, EF 10-15%. Date of service: 12/10/2019 Subjective: Denied chest discomfort, shortness of breath, lightheadedness or palpitations. Life Vest has been applied. Review of Systems Constitutional: Constitutional: Denies weakness Eyes: Eyes: Denies blurry vision ENT: Reports Normal hearing present and Denies nasal congestion Cardiovascular: Cardiovascular: Denies chest pain, Denies diaphoresis, Reports pedal edema ( improved), Reports leg edema ( improved), Denies lightheadedness, Denies palpitations, Denies dyspnea and Denies dyspnea on exertion Respiratory: Respiratory: Denies no additional respiratory complaints, Denies cough, Denies dyspnea and Denies dyspnea on exertion Gastrointestinal: Gastrointestinal: Reports bloating ( improved), Denies diarrhea and Denies nausea Genitourinary: Genitourinary: Denies dysuria Musculoskeletal: Musculoskeletal: Denies arthralgias Integumentary/Breasts: Skin/Breast: Denies rash ( right lower leg improved) Neurologic: Denies behavioral changes, Denies confusion and Denies weakness Psychiatric: Psychiatric: Denies behavioral changes and Denies confusion Endocrine: Endocrine: Denies palpitations Exam Narrative: Exam Narrative: Pleasant young man, at the bedside, no distress Const: General: comfortable and no acute distress; No confusion Orientation/consciousness: No confusion HENMT: Mouth: Yes moist mucous membranes Eyes: EOM: EOMs intact bilaterally Neck: Neck: supple and no JVD Thyroid: thyroid normal Carotids: no bruits Lymphatic: lymphadenopathy not noted Resp: Effort & Inspection: normal respiratory effort Auscultation: clear to auscultation bilaterally Cardio: Rate: regular rate Rhythm: regular rhythm Heart sounds: no gallops and n
--- NOTE | 2019-12-10 11:27 | PM.DS ---
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 Echocardiogram revealed a severe cardiomyopathy with systolic and diastolic dysfunction, EF 10-15%. Underwent left heart cath by Dr Rangel today which showed no evidence of coronary disease. Suspect Idiopathic vs. ?familial - His mother did pass away in her 50s of heart failure but she also had lung CA, per patient. Continue metoprolol, diuresis, and lisinopril changed to Entresto. He can afford the copay for Entresto. LifeVest ordered. F/u with cardiology outpt. (2) Cardiomyopathy: Qualifiers: Cardiomyopathy type: unspecified Qualified Code(s): I42.9 - Cardiomyopathy, unspecified Code(s): I42.9 - Cardiomyopathy, unspecified Status: Acute Assessment and Plan: -----See above. 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 Just this week he was educated on monitoring his blood sugars at home and tells me they were running in the low 200s in the last 2 days. Hgb A1c is 8.6. He was switched to glipizide and is going to f/u with pcp. educated on hypoglycemia s/s. (5) Hypertension: Qualifiers: Hypertension type: essential hypertension Qualified Code(s): I10 - Essential (primary) hypertension Code(s): I10 - Essential (primary) hypertension Status: Chronic Assessment and Plan: -----Continue current treatment as outlined above (6) Nausea and vomiting: Qualifiers: Vomiting type: unspecified Vomiting Intractability: unspecified Qualified Code(s): R11.2 - Nausea with vomiting, unspecified Code(s): R11.2 - Nausea with vomiting, unspecified Status: Resolved Assessment and Plan: -----This has been going on over the last 1 month. May be related to volume overload as his symptoms have now resolved since being here. Stool cultures neg DS: Summary Hospital Course Reason for hospitalization: New onset heart failure Hospital Course: Patient is a 29-year-old male who presented emergency room for bilateral leg edema, nausea and vomiting. Vitals in the ER were temperature 96.8?, pulse 94, respiratory rate 16, blood pressure 108/84, pulse ox 100 on room air. CBC within normal limits. BMP slightly abnormal sodium 133, chloride 92, creatinine 1.1, glucose 263. CT abdomen pelvis showed small to moderate right pleural effusion and pericardial effusion with mild ascites and possible panic steatosis. Patient was admitted to the hospitalist service and underwent further testing. His echocardiogram demonstrated an EF of 10% and grade 3-4 diastolic dysfunction. He has mild to moderate mitral valve regurgitation, moderate tricuspid regurg, and mild pulmonary hypertension. Cardiology was consulted and he underwent a cardiac catheterization which was negative for coronary disease. Patient was started on Entresto, metoprolo
[2019-12-10 13:15] LABS: Glucose Point of Care 164 (65-105)
--- NOTE | 2019-12-12 10:21 | PC.NURSE ---
Campylobacter cx is negative.
== END 2019-12-10 12:56 | disposition home or self-care (01) | DRG 287 ==
LOC: ANHED 12-07 02:11 → ANH2MED 12-07 05:09
PROVIDERS: Emergency Medicine; Physician Assistant; Specialist; Admitting Provider Family Medicine; Emergency Provider General Practice; Visit Provider Physician Assistant
PROC: 4A023N7 Measurement of Cardiac Sampling and Pressure, Left Heart, Percutaneous Approach (ICD-10-PCS; CPT 93452; principal; 2019-12-09 09:30)
DX: I11.0 Hypertensive heart disease with heart failure (principal); I50.41 Acute combined systolic (congestive) and diastolic (congestive) heart failure; I42.9 Cardiomyopathy, unspecified; R11.2 Nausea with vomiting, unspecified; E11.9 Type 2 diabetes mellitus without complications; F17.290 Nicotine dependence, other tobacco product, uncomplicated
CPT/HCPCS: 36415; 71045; 74177; 80048; 80053; 80074; 80307; 81001; 83036; 83690; 83735; 83880; 84132; 84443; 85025; 85610; 85652; 85730; 86140; 87015; 87045; 87046; 87086; 87269; 87272; 87427; 89055; 93005; 93306; 93458; 93970; 96374; 96375; 96376; 99285; A9270; C1887; C1894; G0378; J1940; J2250; J2405; J3010; J7030; J7040; Q9967

== ENCOUNTER 2019-12-23 12:47 | Outpatient (CLI) | payer OTHER, SELFPAY ==
[2019-12-23 13:51] LABS: Anion Gap 8 mmol/L (8-16); Blood Urea Nitrogen 15 mg/dL (9-20); Calcium 9.1 mg/dL (8.4-10.2); Carbon Dioxide 26 mmol/L (22-30); Chloride 104 mmol/L (98-107); Estimated Glomerular Filt Rate > 60; Glucose 150 mg/dL (75-110); Magnesium 1.7 mg/dL (1.6-2.3); Potassium 4.4 mmol/L (3.4-5.0); Sodium 138 mmol/L (137-145)
== END 2019-12-23 12:48 | disposition home or self-care (01) ==
PROVIDERS: Visit Provider Nurse Practitioner Adult Health
DX: I42.0 Dilated cardiomyopathy (principal)
CPT/HCPCS: 36415; 80048; 83735

== ENCOUNTER 2020-04-27 03:55 | Outpatient (CLI) | payer OTHER, SELFPAY ==
[2020-04-27 16:31] LABS: SARS-CoV-2 RNA PCR Negative
== END 2020-04-27 03:56 | disposition home or self-care (01) ==
LOC: ANHCOVIDDT 03:56
PROVIDERS: PCP Family Medicine; Visit Provider Internal Medicine Cardiovascular Disease
DX: Z01.812 Encounter for preprocedural laboratory examination (principal); Z20.822 Contact with and (suspected) exposure to COVID-19
CPT/HCPCS: C9803; U0003; U0005

== ENCOUNTER 2020-04-30 05:16 | Day surgery (SDC) | payer OTHER, SELFPAY ==
[2020-04-29 14:35] VITALS: BMI 29.9
[2020-04-30] VITALS (13 sets, daily range): BP systolic 96–153; BP diastolic 70–99; PULSE 64–88; RESP 14–18; TEMP 36.3–37.2; O2SAT 98–100; BMI 30.6
--- NOTE | ~2020-04-30 | XR_ITS ---
EXAMINATION: XR chest 2V EXAM DATE: 05/01/2020 08:53 INDICATION: s/p ICD insertion. TECHNIQUE: Frontal and lateral projections of the chest obtained and reviewed. Comparison is made to prior examination from 04/30/2020. FINDINGS: There is single lead pacemaker/AICD device seen with tip projecting over the expected loca tion of right ventricle. The lungs are clear. There are no pleural effusions. The cardiomediastinal silhouette is within normal limits. There is no pneumothorax suspected. The bones and soft tissues are unremarkable. IMPRESSION: No acute cardiopulmonary findings. Reviewed, dictated and finalized at location A. POWER CONSULTANT
--- NOTE | ~2020-04-30 | XR_ITS ---
EXAMINATION: XR chest 1V portable EXAM DATE: 04/30/2020 12:46 INDICATION: s/p ICD implantation . TECHNIQUE: Portable AP frontal chest x-ray was obtained. Comparison is made to prior examination from 12/07/2019. FINDINGS: There is single lead pacemaker/AICD device seen with tip projecting over the expected locat ion of right ventricle. The lungs are clear. There are no pleural effusions. There is mild cardiome brendan. There is no pneumothorax suspected. The bones and soft tissues are unremarkable. IMPRESSION: Mild cardiomegaly. No evidence postprocedure pneumothorax. Reviewed, dictated and finalized at location A. N EXPORT AGENT
[2020-04-30 08:21] LABS: Basophils Percent Auto 0.3 % (0.2-1.2); Eosinophils Absolute Auto 0.2 K/mm3 (0-0.3); Eosinophils Percent Auto 2.8 % (0-4.4); Hematocrit 39.5 % (42.0-52.0); Hemoglobin 14.4 g/dL (14.0-18.0); Immature Granulocyte Absolute 0.01 K/mm3 (0.00-0.031); Immature Granulocyte Percent A 0.2 % (0-0.5); Lymphocytes Absolute Auto 1.58 K/mm3 (0.9-3.2); Lymphocytes Percent Auto 26.3 % (18.3-44.2); Mean Corpuscular HGB Conc 36.5 g/dl (32-36); Mean Corpuscular Volume 90.4 fl (80-100); Mean Platelet Volume 10.1 fl (7.4-10.4); Monocytes Absolute Auto 0.5 K/mm3 (0.1-0.6); Neutrophils Absolute Auto 3.8 K/mm3 (1.3-6.7); Neutrophils Percent Auto 62.4 % (45.5-73.1); Platelet Count Result 195 k/mm3 (150-375); Red Blood Count 4.37 M/mm3 (4.6-6.20); Red Cell Distribution Width 11.3 % (11.5-14.5)
[2020-04-30 08:29] LABS: INR 0.9; Prothrombin Time 12.5 Seconds (11.1-14.7)
[2020-04-30 08:31] LABS: Anion Gap 6 mmol/L (8-16); Blood Urea Nitrogen 13 mg/dL (9-20); Calcium 9.3 mg/dL (8.4-10.2); Carbon Dioxide 31 mmol/L (22-30); Chloride 101 mmol/L (98-107); Estimated CRCL calculation 211 ml/min; Estimated Glomerular Filt Rate > 60; Glucose 174 mg/dL (75-110); Potassium 4.7 mmol/L (3.4-5.0); Sodium 138 mmol/L (137-145)
--- NOTE | 2020-04-30 08:31 | WPDHPUPDATE1 ---
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 Has been on medical therapy with improvement of EF to 20%. Class II CHF. Here for elective ICD implant for primary prevention. Has been wearing a LIfeVest. History and Physical has been reviewed, including an updated exam of the patient. There are NO changes in the patient's condition. Risks, benefits, and alternatives have been discussed and questions answered. Patient agrees to proceed with procedure.
--- NOTE | 2020-04-30 08:34 | WPDMODSED ---
Moderate Sedation Note-Pt Data Patient Data Diagnosis: Cardiomyopathy, at risk for sudden cardiac Present Complaint: Cardiomyopathy, CHF, at risk for sudden cardiac Procedure to be performed/Plan: Conscious sedation, venogram, placement of single lead ICD Allergies Allergy/AdvReac Type Severity Reaction Status Date / Time No Known Allergies Allergy Verified 04/29/20 14:48 Home Medications Medication Instructions Recorded Confirmed Type metoprolol succinate 50 mg PO DAILY #30 tablet 12/10/19 04/29/20 Rx ropinirole 0.25 mg PO HS #30 tablet 12/10/19 04/29/20 Rx spironolactone 25 mg PO QAM #30 tablet 12/10/19 04/29/20 Rx furosemide 20 mg PO DAILY 04/29/20 04/29/20 History glimepiride 2 mg PO DAILY 04/29/20 04/29/20 History sacubitril-valsartan [Entresto] 1 tablet PO BID 04/29/20 04/29/20 History Sedation/Anesthesia: No previous sedation/anesthesia problems (including family history). PENDING SALE TO [facility] Past Medical History Medical History Cardiomyopathy Diabetes mellitus Reports he was diagnosed with diabetes in August 2019 and was started on metformin at that time. He tells me they were running more tests this week to determine what type of diabetes he had. He has not gotten these results back yet from PCP. Hypertension Started taking lisinopril and metoprolol 12/05/19 by PCP. Surgical History Surgical History No significant past surgical history Family History Family History (Updated 04/30/20 @ 08:35 by Katie Blackmon MD) Mother Breast cancer CHF (congestive heart failure) Developed CHF in her 50s and in her 50s. No known CAD. Lung cancer patient reports patient of lung cancer in her 50s. Sibling Heart disease born with a hole in his heart, heart problems his whole life, has a pacemaker Father , of complications of alcohol Cerebral aneurysm Sibling Heart disease Cardiomyopathy, has ICD Other Diabetes mellitus Hypertension Social History Social History Social History: Mr. 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 He reports drinking alcohol occasionally, may finish a 12 pack of beer in 4 months. He vapes nicotine, not daily but some days of the week. Denies other substance use. His PCP is Dr Juliet Kendall in [place] who he last saw 12/05/19. He designates his , Melvina, to be his surrogate decision maker. He is full code status. Smoking status: Current every day smoker Tobacco type: e-cigarettes/vaping Second hand tobacco smoke exposure: Yes Alcohol intake: never Substance use type: does not use Living arrangements: alone Gender identity (if verbalized by the patient): Male Sexual Orientation (if Verbalized by the Patient): Straight or Heterosexual Spiritual care concerns: No Mod Sed Physical Exam Physical Exam Pre Procedural Exam: Normal: Appearance, Eyes, Ears, Nose, Neck, Throat, Airway, Lungs, Heart Size, Heart Rate, Heart Rhythm, Neuro Exam, Abdomen, Liver, Extremities and Skin (right subclavian area w/o lesions) Hours since solid foods: 8 Hours since liquid intake: 8 Internal Medicine - PN: Obj Da Vital Signs Vital Signs: Vital Signs - 24 hr 04/30/20 07:00 Temperature 98.9 F Pulse Rate 88 Respiratory Rate 14 Blood Pressure 153/88 H Pulse Oximetry 100 Labs CBC & Chem 7: 04/30/20 07:47 04/30/20 07:47 Labs: Laboratory Results - last 24 hr 04/30/20 04/30/20 04/30/20 07:47 07:47 07:47 WBC 6.0 RBC 4.37 L Hgb 14.4 Hct 39.5 L MCV 90.4 MCH 33.0 MCHC 36.5 H RDW 11.3 L Plt Count 195 MPV 10.1 Immature Gran % (Auto) 0.2 Neut % (Auto) 62.4 Lymph % (Auto) 26.3 [place] % (Auto) 8.0 Eos % (Auto) 2.8 Baso %
[2020-04-30] MEDS: SODIUM CHLORIDE 0.9% IV 500 ML 30 ML (08:45)
--- NOTE | 2020-04-30 10:20 | PM.OP ---
Procedure Note - Brief Procedure Note - Brief Date of procedure: 04/30/20 Pre-op diagnosis: non ischemic cardiomyopathy At risk for sudden cardiac Post-op diagnosis: same Procedure performed: Conscious sedation Venogram Implantation of single lead Biotronik ICD Description of procedure: Uneventful implantation of ICD Anesthesia: local (with conscious sedation) Surgeon: Katie Blackmon MD
--- NOTE | 2020-04-30 10:25 | PM.PROC ---
Procedure Note - Detailed Date of procedure: 04/30/20 Pre-op diagnosis: non ischemic cardiomyopathy At risk for sudden cardiac Post-op diagnosis: same Procedure performed: Conscious sedation Venogram Implantation of a single lead Biotronik ICD Description of procedure: PROCEDURE PERFORMED: Conscious sedation Venogram Placement of a permanent dual-chamber pacemaker SITE: Left prepectoral area MEDICATIONS GIVEN IN SERVICE STATION CONSOLE OPERATOR: Ancef IV piggyback CONSCIOUS SEDATION: Assessment: The patient has no history of anesthesia problems. The patient's oropharynx is clear. The patient was deemed to be a good candidate for conscious sedation. The patient had continuous hemodynamic monitoring during the procedure. Start time: 913 Completion time: 10 15 Total conscious sedation time: 62 minutes Medications: Versed 4 mg and fentanyl 150 mcg IV push Trained observer: Mar Rodriguez RN Outcome: The patient tolerated the procedure well with no complications. PROCEDURE: After informed consent , the patient was brought to the laboratory monitor and the left prepectoral area was prepped and draped in usual fashion . The patient received preop antibiotic and conscious sedation . The left prepectoral area was anesthetized with lidocaine . A venogram was performed showing the course of the left subclavian vein,which was patent. Next a skin incision was made and carried down to the prepectoral fascia. Hemostasis was obtained using electrocautery . The pacer pocket was formed. Using the micropuncture technique, the left subclavian vein was easily accessed with the micropuncture technique, and a J-tip guide wire was passed into the inferior vena cava under fluoroscopic guidance . The needle was withdrawn . An 8 Polish Polish safety sheath was passed over the lateral wire, the wire withdrawn, and the right ventricular lead was passed into the inferior vena cava under fluoroscopic guidance . The lead was then prolapsed through the tricuspid valve and advanced into the right ventricular apex. When suitable sensing and pacing thresholds were obtained, it was screwed into place. No extra cardiac stimulation was obtained using 10 volts. The sheath was withdrawn. The lead was secured to the prepectoral fascia using 2 0 silk suture. The pocket was cleansed with antibiotic containing solution . The pulse generator was introduced into the operative field, and Ventricular lead and the atrial sensing lead electrodes were secured into the generator . A gentle tug showed the leads were securely fastened. The device was introduced into the pocket. The subcutaneous tissues were closed in a double layer fashion with interrupted sutures, using 2-0 Vicryl suture , and the skin was closed in a continuous fashion using 4-0 Vicryl suture in a continuous fashion. Skin adhesive was applied to the medial aspect.The area was cleansed, and an Aquacel dressing was applied . The patient tolerated the procedure well with no complications. PACEMAKER INFORMATION: Pulse generator: Biotronik Acticor 7 VR-T DX DF4 ProMRI Model 229898, serial #[id number] Right ventricular lead: Biotronik model 558506, serial [id number] MEASURED DATA: Atrial sensing: P waves 20.5 mV Right ventricular lead: R-wave sensing 23 mV, impedance 598 Ohms, threshold 0.5 volts at 0.4 milliseconds Implants: Biotronik single lead ICD (with atrial sensing), model 379892, serial [id number] Anesthesia: local ( with conscious sedation) Surgeon: Katie Blackmon MD Estimated blood loss (mL): 10 Drains: No Packing: No Pathology: none sent Complications: No immediate complications Condition: stable Disposition: observation
--- NOTE | 2020-04-30 10:31 | ECG_ITS ---
Measurements Intervals [place] Rate: 72 P: 59 ND: 170 QRS: -12 QRSD: 89 T: 43 QT: 387 QTc: 426 Interpretive Statements SINUS RHYTHM VENTRICULAR PREMATURE COMPLEXES INFERIOR INFARCT, AGE INDETERMINATE ABNORMAL ECG Electronically Signed On 04-30-2020 12:25:47 LEAD QUALITY TECHNICIAN by Jose Hendrix D.O.
[2020-04-30] MEDS: FUROSEMIDE 20 MG TABLET PO (14:04)
[2020-04-30] MEDS: METOPROLOL SUCCINATE EXT REL 50 MG TABCR PO (14:05)
[2020-04-30] MEDS: SPIRONOLACTONE 25 MG TABLET PO (14:06)
--- NOTE | 2020-04-30 14:22 | PC.NURSE ---
Pt s/p pacemaker placement. VSS. IV fluids discontinued after 500 ml infused. Pt tolerating po without nausea or vomiting. Pt given daily meds at 1400 today - since he did not take prior to coming to the hospital today. Confirmed with Dr Blackmon. Sling applied to left arm and patient instructed to not use left arm for repositioning in bed or pulling, etc. - with stated understanding. Remains on bedrest. 12 lead EKG done. Pt resting comfortably.
[2020-04-30] MEDS: ceFAZolin 2 GM/D5W 50 ML 2 GM/50 ML BAG IVPB (16:04)
[2020-04-30] MEDS: SACUBITRIL/VALSARTAN 49-51 MG TABLET 1 TABLET PO (17:47)
[2020-04-30] MEDS: HYDROcodone/acetaminophen (*CRX) 5-325 MG TABLET 1 TAB PO (17:50)
--- NOTE | 2020-04-30 18:13 | PC.NURSE ---
1750 - Pt C/O pain at incision site 06/17. Pain medication per PRN order.
[2020-04-30] MEDS: rOPINIRole HCL 0.25 MG TABLET PO (21:28)
[2020-05-01] VITALS (7 sets, daily range): BP systolic 117–135; BP diastolic 82–92; PULSE 62–100; RESP 14–16; TEMP 36.2–36.4; O2SAT 98–100; BMI 30.6
[2020-05-01] MEDS: ceFAZolin 2 GM/D5W 50 ML 2 GM/50 ML BAG IVPB (00:19)
[2020-05-01] MEDS: FUROSEMIDE 20 MG TABLET PO (08:36)
[2020-05-01] MEDS: SACUBITRIL/VALSARTAN 49-51 MG TABLET 1 TABLET PO (08:36)
[2020-05-01] MEDS: GLIMEPIRIDE 2 MG TABLET PO (08:36)
[2020-05-01] MEDS: METOPROLOL SUCCINATE EXT REL 50 MG TABCR PO (08:36)
[2020-05-01] MEDS: SPIRONOLACTONE 25 MG TABLET PO (08:37)
--- NOTE | 2020-05-01 10:31 | PM.PNCARD ---
Progress Note: A&P Additional Plan 29-year-old man with: Nonischemic cardiomyopathy low ejection fraction stable with no evidence of decompensated heart failure. Patient is admitted yesterday for implantation of ICD device for primary prevention. Procedure was uneventful device is functioning normally today. Plan is for discharge and appointments for follow-up next week in the office for dressing removal have already been made. The patient should not return to work until the dressing is removed in the incision is inspected next week. Tano Rangel MD [facility] Subjective Date/time seen: Date of service: 05/01/20 10:31 Interval history: Follow-up visit in this 29-year-old man with: Nonischemic cardiomyopathy with low ejection fraction admitted yesterday for elective implantation of permanent defibrillator device performed by Dr. Blackmon. Patient is asymptomatic this morning feeling well. Device was checked by the [employer] energy conservation representative it is functioning properly. Exam Const: General: comfortable and no acute distress HENMT: Mouth: Yes moist mucous membranes Eyes: Sclera: sclerae normal Pupils: Equal, round and reactive pupils present Neck: Neck: supple and no JVD Thyroid: thyroid normal Resp: Effort & Inspection: normal respiratory effort Auscultation: clear to auscultation bilaterally Cardio: Rate: regular rate Rhythm: regular rhythm Other: No murmur no gallop no rub GI: GI Palp: Yes Soft to palpation Auscultation: normal bowel sounds Skin: General skin exam: normal color Neuro: Cognition (Neuro): normal cognition Extrem: General: normal to inspection Objective Data Vital Signs Vital Signs: Vital Signs - 24 hr 04/30/20 10:45 04/30/20 11:00 04/30/20 11:30 Temperature 36.3 C L Pulse Rate 83 88 88 Respiratory Rate 16 14 14 Blood Pressure 138/99 H 140/72 101/84 Pulse Oximetry 99 98 98 04/30/20 11:45 04/30/20 13:03 04/30/20 13:45 Temperature 36.3 C L Pulse Rate 70 75 77 Respiratory Rate 14 17 15 Blood Pressure 96/84 L 117/70 111/73 Pulse Oximetry 98 98 100 04/30/20 14:00 04/30/20 14:05 04/30/20 16:00 Temperature 37.1 C Pulse Rate 83 76 82 Respiratory Rate 16 Blood Pressure 120/76 Pulse Oximetry 99 04/30/20 18:00 04/30/20 20:00 04/30/20 22:00 Temperature 36.9 C Pulse Rate 79 71 64 Respiratory Rate 17 Blood Pressure 130/74 Pulse Oximetry 99 05/01/20 00:00 05/01/20 02:00 05/01/20 04:00 Temperature 36.2 C L 36.3 C L Pulse Rate 68 62 70 Respiratory Rate 14 16 Blood Pressure 117/82 135/85 Pulse Oximetry 100 100 05/01/20 06:00 05/01/20 08:00 05/01/20 08:36 Temperature 36.4 C L Pulse Rate 69 80 72 Respiratory Rate 15 Blood Pressure 120/92 H Pulse Oximetry 98 05/01/20 10:00 Temperature Pulse Rate 85 Respiratory Rate Blood Pressure Pulse Oximetry Intake/Output Intake/Output: Intake & Output 04/28/20 04/29/20 04/30/20 05/01/20 23:59 23:59 23:59 23:59 Intake Total 750 50 Output Total 400 850 Balance 350 -800 Meds/Results Medications: Active Medications Generic Name Dose Route Start Last Admin Trade Name Freq PRN Reason Stop Dose Admin Hydrocodone Bitart/Acetaminophen 1 tab 04/30/20 10:31 04/30/20 17:50 Hydrocodone/Acetaminophen (*Crx) 5-325 Mg Tablet PO 1 tab Q6H PRN Administration Pain Rated 1-3 Hydrocodone Bitart/Acetaminophen 2 tab 04/30/20 10:31 Hydrocodone/Acetaminophen (*Crx) 5-325 Mg Tablet PO Q6H PRN Pain Rated 4-6 Furosemide 20 mg 04/30/20 13:00 05/01/20 08:36 Furosemide 20 Mg Tablet PO 20 mg DAILY PAUL Administration Glimepiride 2 mg 05/01/20 08:00 05/01/20 08:36 Glimepiride 2 Mg Tablet PO 2 mg DAILY@0800 PAUL Administration Metoprolol Succinate 50 mg 04/30/20 13:00 05/01/20 08:36 Metoprolol Succinate Ext Rel 50 Mg Tabcr PO 50 mg DAILY PAUL Administration Ropinirole HCl 0.25 mg 04/30/20 21:00 04/30/20 21:28 Ropinir
--- NOTE | 2020-05-01 10:34 | PM.DS ---
DS: Admitting Diagnosis Admitting Diagnosis Admitting Diagnosis: Nonischemic cardiomyopathy DS: Discharge Diagnosis Discharge Diagnosis (1) Cardiomyopathy: Qualifiers: Cardiomyopathy type: unspecified Qualified Code(s): I42.9 - Cardiomyopathy, unspecified Code(s): I42.9 - Cardiomyopathy, unspecified Status: Acute DS: Summary Hospital Course Reason for hospitalization: Implantation defibrillator Hospital Course: This is a 29-year-old gentleman with a established history of nonischemic cardiomyopathy. He is managed in our office as an outpatient has been found to have persistently low ejection fraction despite appropriate medical therapy. In this situation a permanent defibrillator implantation was recommended and scheduled for the day of admission. The procedure was done uneventfully by Dr. Blackmon. The patient received a Biotronik single-chamber ICD uneventfully. This morning he is stable the device was checked by the [employer] termite control service representative and is functioning properly. Patient is being discharged to home in stable condition with unchanged medications. Appointment is made for dressing removal and incision inspection next week in the office. Follow-up after that will be arranged after that appointment. He is instructed not to return to work until that appointment occurs. Status at Discharge Functional status at discharge: independent ambulation Time Spent with Patient Time attestation: Total time spent providing and/or coordinating discharge services: Time spent: Less than 30 minutes Exam Const: General: comfortable and no acute distress HENMT: Mouth: Yes moist mucous membranes Eyes: Sclera: sclerae normal Neck: Neck: supple and no JVD Resp: Effort & Inspection: normal respiratory effort Auscultation: clear to auscultation bilaterally Other: ICD dressing looks clean and dry Cardio: Rate: regular rate Rhythm: regular rhythm Other: PMI displaced no murmur no gallop no rub GI: GI Palp: Yes Soft to palpation Auscultation: normal bowel sounds Neuro: Other: Normal cognition Extrem: General: normal to inspection Discharge Plan Discharge Patient Disposition: Home, Self-Care Discharge Instructions: --Keep the special Aquacel dressing on the incision until it is removed by [facility] nurse on your follow-up visit in 1 week --Keep the dressing clean and dry; no showering above the waist, or swimming until it is removed next week --A small amount of tenderness, puffiness and bruising around the site is normal. Call if any significant pain, drainage, swelling, or redness around the site. --No lifting > 15 pound or exercise with the affected arm for 4 weeks. --Keep the affected arm below shoulder height for 4 weeks. --DO NOT TOUCH OR RUB THE INCISION. No lotions or ointments on the incision. --We will continue to increase your heart medications to improve your heart function. Increase the metoprolol from 50 mg daily to 100 mg daily. You can take two 50 mg tablets to use up what you have. I send in a prescription to your pharmacy for the 100 mg tablets. --I also sent in a prescription for an antibiotic to your pharmacy; start it TODAY. Stand Alone Forms: General Discharge Instructions Follow-up/Referrals: Raffy,Lizeth Rod NP [Non-Staff] - 06/02/20 9:30 am Katie Blackmon MD [Physician] - 10/06/20 9:30 am Discharge Medications: New metoprolol succinate 100 mg tablet extended release 24 hr 100 mg PO DAILY Qty: 90 RF: 1 cephalexin [Keflex] 500 mg capsule 500 mg PO Q12H Qty: 10 RF: 0 Continued spironolactone 25 mg Tablet 25 mg PO QAM Qty: 30 RF: 3 ropinirole 0.25 mg tablet 0.25 mg PO HS Qty: 30 RF: 0 glimepiride 2 mg Tablet 2 mg PO DAILY RF: 0 Entresto 49-51 mg Tablet 1 tablet PO BID RF: 0 furosemide 40 mg tablet 20 mg PO DAILY RF: 0 Discontinued metoprolol succinate 50 mg tablet extended release 24 hr 50 mg PO DAILY Qty
--- NOTE | 2020-05-01 11:12 | PC.NURSE ---
1112-pt given D/C orders and instructions. Questions answered and verbalized understanding. AOx4. PIV removed intact. Dressing soft and non-tender, njo evidence of bleeding or hematoma noted. Taken via wheelchair to waiting vehicle. No distress noted or verbalized at time of D/C.
== END 2020-05-01 11:14 | disposition home or self-care (01) ==
LOC: ANHCATHLAB 07:09 → ANHCPC 13:04
PROVIDERS: PCP Family Medicine; Visit Provider Internal Medicine Cardiovascular Disease
PROC: 0JH608Z Insertion of Defibrillator Generator into Chest Subcutaneous Tissue and Fascia, Open Approach (ICD-10-PCS; CPT 33249; principal; 2020-04-30 08:30)
DX: I42.0 Dilated cardiomyopathy (principal); I50.42 Chronic combined systolic (congestive) and diastolic (congestive) heart failure
CPT/HCPCS: 33249; 36415; 71045; 71046; 80048; 85025; 85610; 93005; A4565; A9270; C1722; C1777; J0690; J2250; J3010; J7040; J7050

== ENCOUNTER 2023-03-30 16:45 | Emergency (ER) | payer OTHER, SELFPAY ==
[2023-03-30 16:56] VITALS: BP 166/113; PULSE 102; RESP 18; TEMP 36.6; O2SAT 100
[2023-03-30 17:00] VITALS: BP 182/108
--- NOTE | 2023-03-30 17:04 | ED.URI ---
HPI - URI/Sore Throat General Chief Complaint: Upper Respiratory Infection Stated Complaint: cough Time Seen by Provider: 03/30/23 17:04 Source: patient Mode of arrival: ambulatory Limitations: no limitations History of Present Illness HPI Narrative: 32-year-old male with hx DM and CHF presented for complaint of cough for about 4 days. Cough worse at night. Endorses at the onset he had some sinus drainage which has improved. He denies associated shortness of breath, wheezing, swelling, nausea, vomiting, fevers or chills. Taking cough syrup without improvement. Related Data Home Medications Medication Instructions Recorded Confirmed glimepiride 2 mg tablet 2 mg PO DAILY 04/29/20 03/30/23 sacubitril 49 mg-valsartan 51 mg 1 tablet PO BID 04/29/20 03/30/23 tablet (Entresto) Allergies Allergy/AdvReac Type Severity Reaction Status Date / Time No Known Allergies Allergy Verified 03/30/23 17:02 Review of Systems Review of Systems: CONSTITUTIONAL: Denies body aches, fever, chills, or sweats. EYES: Denies visual changes, redness, or discharge. ENT: Denies rhinorrhea, congestion, sore throat, or otalgia. CARDIOVASCULAR: Denies chest pain, palpitations, or edema. RESPIRATORY: Reports cough, Denies sob, wheezing. GASTROINTESTINAL: Denies abdominal pain, nausea, vomiting, or diarrhea. SKIN: Denies rash, itching, or wounds. MUSCULOSKELETAL: Denies back pain, joint pain, or myalgia. NEUROLOGIC: Denies headache, numbness, tingling, or weakness. All systems reviewed & are unremarkable except as noted in HPI and below PMFSH Past Medical History Medical History Cardiomyopathy Diabetes mellitus Reports he was diagnosed with diabetes in August 2019 and was started on metformin at that time. He tells me they were running more tests this week to determine what type of diabetes he had. He has not gotten these results back yet from PCP. Hypertension Started taking lisinopril and metoprolol 12/05/19 by PCP. Surgical History Surgical History No significant past surgical history Family History Family History Mother Breast cancer CHF (congestive heart failure) Developed CHF in her 50s and in her 50s. No known CAD. Lung cancer patient reports patient of lung cancer in her 50s. Sibling Heart disease born with a hole in his heart, heart problems his whole life, has a pacemaker Father , of complications of alcohol Cerebral aneurysm Sibling Heart disease Cardiomyopathy, has ICD Other Diabetes mellitus Hypertension Social History Social History Social History: Mr. 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 He reports drinking alcohol occasionally, may finish a 12 pack of beer in 4 months. He vapes nicotine, not daily but some days of the week. Denies other substance use. His PCP is Dr Juliet Kendall in [place] who he last saw 12/05/19. He designates his , Melvina, to be his surrogate decision maker. He is full code status. Smoking status: Current every day smoker Tobacco type: e-cigarettes/vaping Second hand tobacco smoke exposure: Yes Alcohol intake: never Alcohol use details: he use to drink 12-16 beers a day on the weekend Substance use type: does not use Living arrangements: alone Gender identity (if verbalized by the patient): Male Sexual Orientation (if Verbalized by the Patient): Straight or Heterosexual Spiritual care concerns: No Comments At time of signature, I have reviewed and agree with nursing past medical, surgical, social and family history unless otherwise noted. Please see nursing chart for further information. There is no relevant family history
== END 2023-03-30 17:13 | disposition home or self-care (01) ==
PROVIDERS: Emergency Provider Nurse Practitioner Family; PCP Family Medicine
DX: J40 Bronchitis, not specified as acute or chronic (principal); I11.0 Hypertensive heart disease with heart failure; I50.9 Heart failure, unspecified; E11.9 Type 2 diabetes mellitus without complications; F17.290 Nicotine dependence, other tobacco product, uncomplicated; Z79.899 Other long term (current) drug therapy
CPT/HCPCS: 99213; G0463